=== PATIENT | female | born 1995 | race Caucasian/White ===

== ENCOUNTER 2018-04-17 12:44 | Observation (INO) | payer MEDICAID ==
[~2018-04-17] VITALS: Ht 160 cm; Wt 56.2 kg
[2018-04-17] MEDS ORDERED: PNV11TAB MT (13:00)
[2018-04-17] MEDS ORDERED: SODIUM CHLORIDE 0.9% 1,000 ML IV SCH (13:30)
[2018-04-17] MEDS: TERBUTALINE SULFATE 1MG/ML VIAL SUBCUT PRN ×2 (13:30→14:29)
== END 2018-04-17 15:10 | disposition home or self-care (01) ==
LOC: L&D 12:44
PROVIDERS: ADMIT Specialist; ATTEND Specialist
DX: O62.9 Abnormality of forces of labor, unspecified (principal); Z3A.36 36 weeks gestation of pregnancy
CPT/HCPCS: 96360; 96361; 96372; 99281; G0378; J3105; J7030; 59412

== ENCOUNTER 2018-04-17 19:28 | Inpatient (IN) | payer MEDICAID ==
[~2018-04-17] VITALS: Ht 160 cm; Wt 57.6 kg
[~2018-04-17 19:28] MED LIST: PNV11TAB MT
[2018-04-17] MEDS ORDERED: DEXT 5%/LR + PITOCIN 20UNITS/L 1,000 ML IV SCH (20:28)
[2018-04-17] MEDS ORDERED: BUTORPHANOL TARTRATE 2 MG/ML VIAL IV PRN (20:30)
[2018-04-17] MEDS ORDERED: LIDOCAINE HCL 1% 20ML VIAL (Pyxis) INJ INFIL SCH (20:30)
[2018-04-17] MEDS ORDERED: MISOPROSTOL 100MCG TABLET VG SCH (20:30)
[2018-04-17] MEDS ORDERED: CARBOPROST TROMETHAMINE 250 MCG/ML AMPUL IM PRN (20:30)
[2018-04-17] MEDS ORDERED: METHYLERGONOVINE MALEATE 0.2 MG/ML IM PRN (20:30)
[2018-04-17] MEDS ORDERED: RHO(D) IMMUNE GLOBULIN 300 MCG/SYR IM NR (20:30)
[2018-04-17] MEDS: LACTATED RINGERS 1,000 ML IV SCH ×3 (20:51→23:39)
[2018-04-17 21:24] LABS: CLARITY URINE CLEAR (CLEAR); COLOR URINE YELLOW (YELLOW); KETONES URINE NEGATIVE (NEGATIVE); LEUKOCYTE ESTERASE URINE NEGATIVE (NEGATIVE); NITRITE URINE NEGATIVE (NEGATIVE); OCCULT BLOOD URINE NEGATIVE (NEGATIVE); PROTEIN URINE NEGATIVE (NEGATIVE); SPECIFIC GRAVITY URINE 1.005 (1.005-1.030); UROBILINOGEN URINE 0.2 E.U./dL (0.2-1.0)
[2018-04-17 21:26] LABS: BASOPHILS % 0.4 % (0.0-2.0); EOSINOPHILS % 0.1 % (0.0-5.0); HEMATOCRIT. 32.1 % (36.0-48.0); LYMPHOCYTES % 11.6 % (20.0-50.0); MEAN CORPUSCULAR HEMOGLOBIN 32.2 pg (28.0-32.0); MONOCYTES % 5.2 % (2.0-8.0); NEUTROPHILS % 82.7 % (40.0-76.0); PLATELET 170 x1000/uL (130-400); RED BLOOD CELL COUNT 3.42 mill/uL (4.2-5.4); RED CELL DISTRIBUTION WIDTH 13.5 % (11.6-14.6)
[2018-04-17 21:37] LABS: CANNABINOID URINE SCREEN NEGATIVE (NEGATIVE); PHENCYCLIDINE URINE SCREEN NEGATIVE (NEGATIVE)
[2018-04-17 21:38] LABS: *AMPHETAMINES SCREEN URINE NEGATIVE (NEGATIVE); *BARBITURATES SCREEN URINE NEGATIVE (NEGATIVE); *BENZODIAZEPINES SCREEN URINE NEGATIVE (NEGATIVE); *COCAINE SCREEN URINE NEGATIVE (NEGATIVE); METHADONE URINE SCREEN NEGATIVE (NEGATIVE); OPIATES URINE SCREEN NEGATIVE (NEGATIVE)
[2018-04-17 21:39] LABS: PARTIAL THROMBOPLASTIN TIME 27.8 sec (23.4-31.0); PROTHROMBIN TIME 10.4 sec (9.4-11.6)
[2018-04-17 22:07] LABS: HEPATITIS B SURFACE ANTIGEN NEGATIVE; RUBELLA IGG 24.9 IU/mL (4.99-10)
[2018-04-17] MEDS ORDERED: BUPIVACAINE HCL/NS/PF EPIDURAL 100 ML EP ONE (22:57)
[2018-04-17] MEDS ORDERED: FENTANYL CITRATE/PF 50MCG/ML 2ML VIAL ONE (22:57)
[2018-04-18] MEDS ORDERED: DEXT 5%/LR + PITOCIN 20UNITS/L 1,000 ML IV SCH (03:13)
[2018-04-18] MEDS ORDERED: DIPHENHYDRAMINE 25MG CAPSULE PO PRN (03:15)
[2018-04-18] MEDS ORDERED: GLYCERIN/WITCH HAZEL LEAF MEDICATED PAD TOP PRN (03:15)
[2018-04-18] MEDS ORDERED: RHO(D) IMMUNE GLOBULIN 300 MCG/SYR IM PRN (03:15)
[2018-04-18] MEDS ORDERED: HEMORRHOIDAL SUPP PR PRN (03:15)
[2018-04-18] MEDS ORDERED: LANOLIN OINT 0.25 GM TUBE TOP PRN (03:15)
[2018-04-18] MEDS ORDERED: ACETAMINOPHEN WITH CODEINE 300/30MG TABLET PO PRN ×2 (03:15)
[2018-04-18] MEDS ORDERED: BISACODYL 10MG SUPP PR PRN (03:15)
[2018-04-18 04:45] VITALS: BP 113/76
[2018-04-18 05:30] VITALS: BP 110/72
[2018-04-18] MEDS ORDERED: BUPIVACAINE HCL/NS/PF EPIDURAL 100 ML EP SCH (06:30)
[2018-04-18 08:28] VITALS: BP 110/61
[2018-04-18 09:03] LABS: BASOPHILS % 0.1 % (0.0-2.0); EOSINOPHILS % 0.1 % (0.0-5.0); HEMATOCRIT. 33.3 % (36.0-48.0); HEMOGLOBIN. 11.4 g/dL (12.0-16.0); LYMPHOCYTES % 9.7 % (20.0-50.0); MEAN CORPUSCULAR HEMOGLOBIN 32.3 pg (28.0-32.0); MEAN CORPUSCULAR VOLUME 94.3 fL (81.0-99.0); MEAN PLATELET VOLUME 9.7 fl (7.4-10.4); MONOCYTES % 9.4 % (2.0-8.0); NEUTROPHILS % 80.7 % (40.0-76.0); PLATELET 193 x1000/uL (130-400); RED BLOOD CELL COUNT 3.53 mill/uL (4.2-5.4); RED CELL DISTRIBUTION WIDTH 13.3 % (11.6-14.6)
[2018-04-18] MEDS: PRENATAL VIT/FE FUMARATE/FA TABLET PO SCH (09:47)
[2018-04-18] MEDS ORDERED: TETANUS, DIPHTHERIA, PERTUSSIS VAC/PF 0.5ML (>7YR OLD) IM ONE (12:00)
[2018-04-18 16:00] VITALS: BP 108/60
[2018-04-18] MEDS ORDERED: DOCUSATE SODIUM 100MG CAPSULE PO SCH (21:00)
[2018-04-18] MEDS: IBUPROFEN 400MG TABLET PO PRN (21:06)
[2018-04-19] VITALS: BP 92/49
[2018-04-19 07:32] VITALS: BP 116/62
[2018-04-19] MEDS: PRENATAL VIT/FE FUMARATE/FA TABLET PO SCH (07:58)
[2018-04-19] MEDS: IBUPROFEN 400MG TABLET PO PRN ×2 (08:00→13:58)
[2018-04-19] MEDS ORDERED: FERROUS SULFATE 325MG TABLET PO SCH (12:10)
[2018-04-19] MEDS ORDERED: TETANUS, DIPHTHERIA, PERTUSSIS VAC/PF 0.5ML (>7YR OLD) IM ONE (13:00)
== END 2018-04-19 15:55 | disposition home or self-care (01) | DRG 560 ==
LOC: OBSVTOIN 19:28 → L&D 19:28 → 7EST PP/OB 04-18 04:23
PROVIDERS: ADMIT Specialist; ATTEND Specialist
PROC: 3E0R3BZ Introduction of Anesthetic Agent into Spinal Canal, Percutaneous Approach (ICD-10-PCS; 2018-04-17)
PROC: 00HU33Z Insertion of Infusion Device into Spinal Canal, Percutaneous Approach (ICD-10-PCS; 2018-04-17)
PROC: 10E0XZZ Delivery of Products of Conception, External Approach (ICD-10-PCS; principal; 2018-04-18 02:26)
DX: O80 Encounter for full-term uncomplicated delivery (principal); Z37.0 Single live birth; Z3A.38 38 weeks gestation of pregnancy
CPT/HCPCS: 36415; 80305; 81003; 85025; 85610; 85730; 86592; 86703; 86762; 86850; 86870; 86900; 87340; 90384; 90715; G0378; J0595; J2590; J3010; J3490; J7120; A4315